=== PATIENT | male | born 1950 | race Caucasian/White ===

== ENCOUNTER 2021-09-30 11:24 | Emergency (ER) | payer MEDICARE, SELFPAY ==
[2021-09-30 11:25] VITALS: BP 136/86; PULSE 78; RESP 21; TEMP 36.4; O2SAT 97; BMI 25.7
[2021-09-30 11:30] VITALS: BP 128/80; PULSE 73; RESP 21; O2SAT 93
[2021-09-30 11:32] VITALS: O2SAT 94
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
[2021-09-30 11:45] VITALS: BP 140/86; PULSE 76; RESP 16; O2SAT 94
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
[2021-09-30] MEDS: Morphine 4 MG/ML Syringe IV (11:50)
[2021-09-30] MEDS: Ondansetron 4 MG/2 ML Vial IV (11:50)
[2021-09-30 12:00] VITALS: BP 124/70; PULSE 77; RESP 16; O2SAT 93
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
[2021-09-30 12:10] LABS: Absolute Lymphocyte Count 2.21 X10^3/uL (0.83-4.51); Absolute Neutrophil Count 4.3 X10^3/uL (2.0-7.7); Basophil# 0.02 X10^3/uL; Basophil% 0.3 % (0-1); Eosinophil# 0.12 X10^3/uL; Eosinophils% 1.7 % (0-5); Hematocrit 42.9 % (40-54); Hemoglobin 14.9 g/dL (13.0-16.5); Lymphocyte # 2.21 X10^3/ul (0.83-4.51); Lymphocyte % 30.6 % (19-41); Mean Corp Hgb Conc 34.7 g/dL (32-36); Mean Corpuscular Hgb 32.4 pg (27.0-32.0); Mean Corpuscular Volume 93.3 fL (80-94); Mean Platelet Vol. 10.3 fl (6.2-12.0); Monocyte# 0.54 X10^3/uL; Monocyte% 7.5 % (0-10); NRBC Flagged by Analyzer 0 % (0-5); Neutrophil # 4.26 X10^3/uL (2.7-7.7); Neutrophil % 58.8 % (47-70); Platelet Count 185 K/mm3 (150-450); RBC Distribution Width CV 12.8 % (11.6-14.6); RBC Distribution Width SD 43.3 fl (35.1-43.9); White Blood Count 7.2 K/mm3 (4.4-11.0)
[2021-09-30 12:15] VITALS: BP 123/84; PULSE 79; RESP 16; O2SAT 91
[2021-09-30 12:21] LABS: International Normalized Ratio 1.1; Prothrombin Time (Protime)PT. 13.9 SECONDS (11.7-14.9)
[2021-09-30 12:22] LABS: Partial Thromboplast Time 29.7 Seconds (24.1-36.2)
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
--- NOTE | 2021-09-30 12:48 | ED.RN ---
All personal belongings verified w/C.UNRULY Peralta.
[2021-09-30 12:53] LABS: AST(SGOT) 53 U/L (15-37); Alanine Aminotransfer ALT/SGPT 54 U/L (16-61); Albumin, Serum 3.6 g/dL (3.2-5.0); Alkaline Phosphatase 79 U/L (45-117); Anion Gap 7 (5-15); BUN 13 mg/dL (7-18); BUN/Creat Ratio 14.2 RATIO (10-20); Bilirubin, Direct 0.19 mg/dL (0.00-0.30); Calcium,Total 8.8 mg/dL (8.5-10.1); Chloride 107 mmol/L (98-107); Creatinine, Serum 0.92 mg/dL (0.70-1.30); EST Glomerular Filtration Rate 86 mL/min (>60); Est Glom Filt Rate - Afr Amer 104 mL/min (>60); Estimated Creatinine Clearance 78.49 ml/min; Globulin 3.7 g/dL (2.2-4.2); Glucose 137 mg/dL (74-106); Protein, Total 7.3 g/dL (6.4-8.2); Sodium Level 139 mmol/L (136-145)
[2021-09-30 12:57] LABS: Alcohol, Blood (Medical)-Serum < 3.0 mg/dL
== END 2021-09-30 12:55 | disposition short-term general hospital (02) ==
PROVIDERS: Emergency Provider Emergency Medicine; Visit Provider Emergency Medicine
DX: S06.899A Other specified intracranial injury with loss of consciousness of unspecified duration, initial encounter (principal); S22.42XA Multiple fractures of ribs, left side, initial encounter for closed fracture; S27.0XXA Traumatic pneumothorax, initial encounter; I25.2 Old myocardial infarction; V28.0XXA Motorcycle driver injured in noncollision transport accident in nontraffic accident, initial encounter
CPT/HCPCS: 70450; 71045; 71260; 72125; 74177; 80048; 80076; 82077; 85025; 85610; 85730; 93005; 96374; 96375; 99285; Q9967; J2405